=== PATIENT | male | born 1980 | race Caucasian/White ===

== ENCOUNTER 2020-06-14 23:13 | Emergency (ER) | payer OTHER ==
[2020-06-14 23:38] VITALS: Wt 159.1 kg
[2020-06-15] MEDS ORDERED: ULTRAM50 MG PO (01:16)
[2020-06-15 02:11] VITALS: BP 121/73
== END 2020-06-15 02:13 | disposition home or self-care (01) ==
LOC: D.ER 23:13
DX: S00.93XA Contusion of unspecified part of head, initial encounter (principal); S16.1XXA Strain of muscle, fascia and tendon at neck level, initial encounter; S06.0X9A Concussion with loss of consciousness of unspecified duration, initial encounter; S80.02XA Contusion of left knee, initial encounter; S90.31XA Contusion of right foot, initial encounter; S39.012A Strain of muscle, fascia and tendon of lower back, initial encounter; V89.2XXA Person injured in unspecified motor-vehicle accident, traffic, initial encounter; Y93.9 Activity, unspecified; Y92.9 Unspecified place or not applicable